=== PATIENT | female | born 1980 | race Caucasian/White ===

== ENCOUNTER 2018-08-24 07:38 | Day surgery (SDC) | payer MEDICAID ==
[2017-12-19 17:18] VITALS: BMI 31.1
[2018-08-24] MEDS ORDERED: Lactated Ringer's 500 ML IV ONE (09:15)
--- NOTE | 2018-08-24 09:35 | CP.SDSHP ---
Same Day Surgery H & P - History Proposed Procedure: COLONSCOPY Pre-Op Diagnosis: SEE NOTES - Previous Medical/Surgical History Cardiac: Hypertension Misc: Other - Allergies Allergies: Allergies No Known Allergies Allergy (Verified 08/24/18 08:39) - Physical Exam General Appearance: N Vital Signs: Vital Signs 08/24/18 09:07 Temperature 97.6 F Pulse Rate 79 Respiratory 19 Rate Blood Pressure 102/69 O2 Sat by Pulse 100 Oximetry Mental Status: Alert & Oriented x3 Neuro: WNL Heart: WNL Lungs: WNL GI: Other - {Optional Preform as Required} Breast: WNL Abdomen: Other Rectal: Other Integument: WNL : WNL Ortho: Other ENT: WNL - Impression Pt. Evaluated Today:Candidate for Anesthesia & Procedure: Yes - Date & Time Time: 09:35 Short Stay Discharge - Short Stay Discharge Admitting Diagnosis/Reason for Visit: HEMORRHAGE OF ANUS AND RECTUM Disposition: HOME/ ROUTINE Referrals: Joon Burton MD [Primary Care Provider] -
[2018-08-24] MEDS ORDERED: Propofol 10 mg/ml Inj (20 ML) ONE (09:38)
[2018-08-24] MEDS ORDERED: Lidocaine Hydrochloride 5 ML INJ ONE (09:38)
[2018-08-24] MEDS ORDERED: Belladonna-Phenobarbital PO ONE (10:15)
[2018-08-24 12:14] VITALS: TEMP 98
[2018-08-24 12:16] VITALS: RESP 20
[2018-08-24 12:22] VITALS: BP 155/70; PULSE 82; O2SAT 100
== END 2018-08-24 11:45 | disposition home or self-care (01) ==
LOC: C.ENDO 07:38
PROVIDERS: ATTEND Specialist
DX: K62.5 Hemorrhage of anus and rectum (principal); K64.8 Other hemorrhoids; K58.9 Irritable bowel syndrome, unspecified
CPT/HCPCS: 45378; 84703; 88305; J2704; J7120